=== PATIENT | female | born 1950 | race African-American/Black ===

== ENCOUNTER 2024-11-04 11:25 | Inpatient (IN) | payer OTHER ==
[2024-11-04] MEDS ORDERED: ACETAMINOPHEN INJECTION 100 ML ONE (12:31)
[2024-11-04] MEDS: ACETAMINOPHEN 1000 MG/100 ML BAG IVPB ONE (12:54)
[2024-11-04 13:17] LABS: ABSOLUTE IMMATURE GRANULOCYTES 0.01 x10^3/uL (0.0-0.031); BASOPHILS # 0.03 x10^3/uL (0.01-0.08); EOSINOPHIL % 3.7 % (0.7-5.8); EOSINOPHILS # 0.16 x10^3/uL (0.04-0.36); MCHC 31.1 g/dl (32.2-35.5); MEAN CELL VOLUME 87.7 fl (79.4-94.8); MEAN PLT VOLUME 12.2 fl (9.4-12.3); MONOCYTE # 0.32 x10^3/uL (0.24-0.86); MONOCYTE % 7.5 % (4.7-12.5); RDW 13.8 % (12.4-16.6)
[2024-11-04 13:25] LABS: INR 1.02 (0.83-1.09); PROTHROMBIN TIME (PATIENT) 11.2 SEC (9.7-13.0)
[2024-11-04 13:28] LABS: ACTIVATED PTT 36.9 SECONDS (25.2-36.5)
[2024-11-04 13:33] LABS: GLUCOSE,RANDOM 71 mg/dL (74-106); TOT PROT 7.0 g/dl (6.4-8.2)
[2024-11-04 13:34] LABS: CO2 25 mmol/L (21-32)
[2024-11-04 13:36] LABS: ALK PHOS 89 U/L (40-150)
[2024-11-04 13:38] LABS: SGOT/AST 31 U/L (5-34); SGPT/ALT 48 U/L (0-55)
[2024-11-04 13:39] LABS: CREATININE 2.39 mg/dL (0.55-1.3)
[2024-11-04 15:30] LABS: EPI CELLS 2 /uL (0-25.1); HYALINE CASTS 0 /uL (0-3.1); URINE APPEARANCE CLEAR; URINE BACTERIA 14 /uL (0-1359); URINE BILIRUBIN NEGATIVE (NEGATIVE); URINE COLOR YELLOW; URINE GLUCOSE (UA) NEGATIVE (NEGATIVE); URINE KETONE NEGATIVE (NEGATIVE); URINE LEUK ESTERASE TRACE (NEGATIVE); URINE NITRITE NEGATIVE (NEGATIVE); URINE PROTEIN NEGATIVE (NEGATIVE); URINE RBC 6 /uL (0-23.9); URINE UROBILINOGEN 0.2 mg/dL (0.2-1.0); URINE WBC 1 /uL (0-25.8)
[2024-11-04] MEDS ORDERED: HEPARIN NA (PORCINE) 5,000 UNITS/ML 1ML VIAL ONE (21:09)
[2024-11-04] MEDS ORDERED: INSULIN GLARGINE (LANTUS) 100 UNITS/ML UNITS SQ ONE (21:10)
[2024-11-04] MEDS: INSULIN GLARGINE (LANTUS) 100 UNITS/ML UNITS SQ SCH (21:19)
[2024-11-04] MEDS: HEPARIN NA (PORCINE) 5,000 UNITS/ML 1ML VIAL SQ SCH (21:19)
[2024-11-05] MEDS: INSULIN ASPART SLIDING SCALE (NOVOLOG) 1 VIAL SQ SCH (06:10)
[2024-11-05 08:10] LABS: ABSOLUTE IMMATURE GRANULOCYTES 0.01 x10^3/uL (0.0-0.031); BASOPHILS # 0.04 x10^3/uL (0.01-0.08); EOSINOPHIL % 4.0 % (0.7-5.8); EOSINOPHILS # 0.21 x10^3/uL (0.04-0.36); MCHC 31.2 g/dl (32.2-35.5); MEAN CELL VOLUME 87.5 fl (79.4-94.8); MEAN PLT VOLUME 11.8 fl (9.4-12.3); MONOCYTE # 0.39 x10^3/uL (0.24-0.86); MONOCYTE % 7.5 % (4.7-12.5); RDW 13.7 % (12.4-16.6)
[2024-11-05 09:01] LABS: GLUCOSE,RANDOM 100.0 mg/dL (74-106)
[2024-11-05 09:02] LABS: CO2 27.0 mmol/L (21-32)
[2024-11-05 09:06] LABS: CREATININE 2.0 mg/dL (0.55-1.3)
[2024-11-05] MEDS: MEMANTINE HCL 5 MG TABLET (UD) PO SCH (10:59)
[2024-11-05] MEDS: PANTOPRAZOLE 40 MG TABLET PO SCH (10:59)
[2024-11-05] MEDS: ANASTROZOLE 1 MG TABLET PO SCH (10:59)
[2024-11-05] MEDS: LACTATED RINGERS SOLUTION 1,000 ML/1,000 ML INFUS.BAG IV SCH (18:05)
[2024-11-06 08:40] LABS: ABSOLUTE IMMATURE GRANULOCYTES 0.01 x10^3/uL (0.0-0.031); BASOPHILS # 0.04 x10^3/uL (0.01-0.08); EOSINOPHIL % 4.1 % (0.7-5.8); EOSINOPHILS # 0.19 x10^3/uL (0.04-0.36); MCHC 31.5 g/dl (32.2-35.5); MEAN CELL VOLUME 86.5 fl (79.4-94.8); MEAN PLT VOLUME 11.6 fl (9.4-12.3); MONOCYTE # 0.32 x10^3/uL (0.24-0.86); MONOCYTE % 6.9 % (4.7-12.5); RDW 13.8 % (12.4-16.6)
[2024-11-06 09:44] LABS: GLUCOSE,RANDOM 96.0 mg/dL (74-106)
[2024-11-06 09:45] LABS: TOT PROT 6.5 g/dl (6.4-8.2)
[2024-11-06 09:46] LABS: CO2 25.0 mmol/L (21-32)
[2024-11-06 09:48] LABS: ALK PHOS 82.0 U/L (40-150)
[2024-11-06 09:50] LABS: SGOT/AST 28.0 U/L (5-34); SGPT/ALT 35.0 U/L (0-55)
[2024-11-06 09:51] LABS: CREATININE 2.08 mg/dL (0.55-1.3)
[2024-11-06] MEDS ORDERED: MAGNESIUM SULF 50% (8.12 MEQ/2 ML-1 GM VIAL) IVPB ONE (09:57)
[2024-11-06] MEDS: MAGNESIUM SULF 50% (8.12 MEQ/2 ML-1 GM VIAL) IVPB ONE (12:30)
[2024-11-06] MEDS ORDERED: LACTATED RINGERS SOLUTION 1,000 ML/1,000 ML INFUS.BAG IV SCH (16:27)
[2024-11-06] MEDS: SODIUM CHLORIDE 1,000 ML IV SCH (16:52)
[2024-11-06] MEDS: LIDOCAINE 5% TOPICAL PATCH TP SCH (16:55)
[2024-11-06 23:08] LABS: PARATHYROID HORM INTACT 107 pg/mL (15-65)
[2024-11-07] MEDS: LIDOCAINE PATCH REMOVAL MC SCH (04:20)
[2024-11-07 09:01] LABS: ABSOLUTE IMMATURE GRANULOCYTES 0.01 x10^3/uL (0.0-0.031); BASOPHILS # 0.03 x10^3/uL (0.01-0.08); EOSINOPHIL % 3.7 % (0.7-5.8); EOSINOPHILS # 0.16 x10^3/uL (0.04-0.36); MCHC 31.3 g/dl (32.2-35.5); MEAN CELL VOLUME 87.9 fl (79.4-94.8); MEAN PLT VOLUME 12.1 fl (9.4-12.3); MONOCYTE # 0.33 x10^3/uL (0.24-0.86); MONOCYTE % 7.5 % (4.7-12.5); RDW 13.7 % (12.4-16.6)
[2024-11-07] MEDS ORDERED: ACETAMINOPHEN 325 MG TABLET (FP) PO PRN ×2 (09:09→11:56)
[2024-11-07 09:24] LABS: TOT PROT 6.1 g/dl (6.4-8.2)
[2024-11-07 09:25] LABS: CO2 26.0 mmol/L (21-32)
[2024-11-07 09:27] LABS: ALK PHOS 77.0 U/L (40-150)
[2024-11-07 09:29] LABS: GLUCOSE,RANDOM 128.0 mg/dL (74-106); SGOT/AST 30.0 U/L (5-34); SGPT/ALT 34.0 U/L (0-55)
[2024-11-07 09:30] LABS: CREATININE 2.08 mg/dL (0.55-1.3)
[2024-11-07] MEDS: DONEPEZIL HCL 5 MG TABLET (FP) PO SCH (21:10)
[2024-11-07] MEDS: INSULIN GLARGINE (LANTUS) 100 UNITS/ML UNITS SQ SCH (22:09)
[2024-11-08] MEDS ORDERED: DEXTROSE 50%-WATER 25 GM/50 ML DISP.SYRIN IVPUSH PRN (06:19)
[2024-11-08] MEDS: DEXTROSE 50%-WATER 25 GM/50 ML DISP.SYRIN IVPUSH ONE (06:20)
[2024-11-08] MEDS ORDERED: INSULIN GLARGINE (LANTUS) 100 UNITS/ML UNITS SQ SCH (07:00)
[2024-11-08 07:07] LABS: FREE KAP CHN UR 120.74 mg/L (1.17-86.46); KAPPA LAMBDA RATIO URIN 4.99 (1.83-14.26)
[2024-11-08] MEDS ORDERED: REGADENOSON 0.4 MG/5 ML PRE-FILLED SYRINGE IVPUSH ONE (08:58)
[2024-11-08] MEDS: REGADENOSON 0.4 MG/5 ML PRE-FILLED SYRINGE IVPUSH ONE (10:17)
[2024-11-08 10:47] LABS: MCHC 31.2 g/dl (32.2-35.5); MEAN CELL VOLUME 88.6 fl (79.4-94.8); MEAN PLT VOLUME 11.3 fl (9.4-12.3); RDW 13.9 % (12.4-16.6)
[2024-11-08 11:49] LABS: GLUCOSE,RANDOM 132.0 mg/dL (74-106)
[2024-11-08 11:51] LABS: CO2 27.0 mmol/L (21-32)
[2024-11-08 11:55] LABS: CREATININE 1.73 mg/dL (0.55-1.3)
[2024-11-08] MEDS: HYDROCORTISONE SOD SUCCINATE 100 MG/2 ML VIAL IVPUSH ONE (20:49)
[2024-11-09 08:37] LABS: ABSOLUTE IMMATURE GRANULOCYTES 0.01 x10^3/uL (0.0-0.031); BASOPHILS # 0.04 x10^3/uL (0.01-0.08); EOSINOPHIL % 5.8 % (0.7-5.8); EOSINOPHILS # 0.33 x10^3/uL (0.04-0.36); MCHC 31.0 g/dl (32.2-35.5); MEAN CELL VOLUME 87.8 fl (79.4-94.8); MONOCYTE # 0.34 x10^3/uL (0.24-0.86); MONOCYTE % 6.0 % (4.7-12.5); RDW 13.9 % (12.4-16.6)
[2024-11-09 08:46] LABS: INR 1.01 (0.83-1.09); PROTHROMBIN TIME (PATIENT) 11.0 SEC (9.7-13.0)
[2024-11-09 08:48] LABS: ACTIVATED PTT 35.7 SECONDS (25.2-36.5)
[2024-11-09 09:09] LABS: GLUCOSE,RANDOM 159.0 mg/dL (74-106)
[2024-11-09 09:10] LABS: CO2 24.0 mmol/L (21-32)
[2024-11-09 09:14] LABS: CREATININE 1.81 mg/dL (0.55-1.3)
[2024-11-09] MEDS ORDERED: GENTAMICIN SO4 80 MG/2 ML VIAL ONE (09:27)
[2024-11-09] MEDS ORDERED: VANCOMYCIN 1,000 MG VIAL (RESTRICTED TO ID ONLY) ONE (09:27)
[2024-11-09] MEDS ORDERED: LIDOCAINE 1%/EPI 1:100000 (20 ML MULTI DOSE VIAL) ONE (09:28)
[2024-11-09] MEDS ORDERED: THROMBIN (BOVINE) 20,000 UNIT VIAL TP ONE (09:28)
[2024-11-09] MEDS ORDERED: ROCURONIUM BROMIDE 50 MG/5 ML SYRINGE ONE (09:32)
[2024-11-09] MEDS ORDERED: LIDOCAINE HCL/PF 2% SDV 5ML VIAL ONE (09:32)
[2024-11-09] MEDS ORDERED: SUCCINYLCHOLINE CHLORIDE 200 MG/10 ML SYRINGE ONE (09:32)
[2024-11-09] MEDS ORDERED: PROPOFOL 20 ML ONE (09:32)
[2024-11-09] MEDS ORDERED: MIDAZOLAM HCL 2 MG/2 ML SINGLE DOSE VIAL ONE (09:33)
[2024-11-09] MEDS ORDERED: SODIUM CHLORIDE 0.9% P/F 10 ML VIAL IJ ONE (10:25)
[2024-11-09] MEDS: LIDOCAINE 1%/EPI 1:100000 (20 ML MULTI DOSE VIAL) IJ ONE (11:00)
[2024-11-09] MEDS ORDERED: DEXAMETHASONE SOD PHOSPHATE 4 MG/1 ML VIAL ONE (11:14)
[2024-11-09] MEDS: GENTAMICIN SO4 80 MG/2 ML VIAL IVPB ONE (11:43)
[2024-11-09] MEDS: HYDROGEN PEROXIDE 473 ML PO ONE (11:49)
[2024-11-09] MEDS: THROMBIN (BOVINE) 20,000 UNIT VIAL TP ONE (12:03)
[2024-11-09] MEDS ORDERED: BUPIVACAINE HCL/PF 0.5% (5MG/ML) 10 ML VIAL ONE (12:17)
[2024-11-09] MEDS ORDERED: ONDANSETRON 4 MG/2 ML VIAL ONE (12:48)
[2024-11-09] MEDS ORDERED: PROMETHAZINE HCL 25 MG/1 ML VIAL IVPB PRN ×2 (13:25→14:02)
[2024-11-09] MEDS ORDERED: ONDANSETRON 4 MG/2 ML VIAL IVPUSH PRN ×3 (13:25→14:02)
[2024-11-09] MEDS ORDERED: ACETAMINOPHEN INJECTION 100 ML ONE (13:36)
[2024-11-09] MEDS: ACETAMINOPHEN 1000 MG/100 ML BAG IVPB ONE (13:40)
[2024-11-09] MEDS ORDERED: DEXTROSE 50%-WATER 25 GM/50 ML DISP.SYRIN IVPUSH PRN (14:02)
[2024-11-09] MEDS: SODIUM CHLORIDE 1,000 ML IV SCH (14:37)
[2024-11-09] MEDS: DOCUSATE SODIUM 100 MG CAPSULE (FP) PO SCH (16:12)
[2024-11-09] MEDS: INSULIN ASPART SLIDING SCALE (NOVOLOG) 1 VIAL SQ SCH (17:24)
[2024-11-09] MEDS: LIDOCAINE 5% TOPICAL PATCH TP SCH (17:24)
[2024-11-09] MEDS: CEFAZOLIN 1 GM in DEXTROSE 5%-WATER - 50 ML IVPB SCH (19:03)
[2024-11-09] MEDS: LACTATED RINGERS SOLUTION 1,000 ML IV SCH ×2 (19:27)
[2024-11-09] MEDS: CEFAZOLIN 1 GM/D5W 1 GM/50 ML BAG IVPB SCH (19:28)
[2024-11-09] MEDS: ACETAMINOPHEN 325 MG TABLET (FP) PO SCH (20:57)
[2024-11-09] MEDS: CHLORHEXIDINE GLUCONATE 4% CLEANSER FOR DECOLONIZATION TP SCH (21:06)
[2024-11-09] MEDS: DONEPEZIL HCL 5 MG TABLET (FP) PO SCH (21:06)
[2024-11-09] MEDS: MUPIROCIN 2% TOPICAL OINTMENT FOR DECOLONIZATION NS SCH (21:06)
[2024-11-09] MEDS ORDERED: ACETAMINOPHEN 1000 MG/100 ML BAG IVPB PRN (21:22)
[2024-11-09] MEDS ORDERED: CHLORHEXIDINE GLUCONATE 4% CLEANSER FOR DECOLONIZATION TP SCH (22:00)
[2024-11-09] MEDS ORDERED: LIDOCAINE PATCH REMOVAL MC SCH (22:00)
[2024-11-09] MEDS ORDERED: MUPIROCIN 2% TOPICAL OINTMENT FOR DECOLONIZATION NS SCH (22:00)
[2024-11-09] MEDS: ACETAMINOPHEN 1000 MG/100 ML BAG IVPB SCH (23:37)
[2024-11-09] MEDS: INSULIN GLARGINE (LANTUS) 100 UNITS/ML UNITS SQ SCH (23:37)
[2024-11-10] MEDS: LIDOCAINE PATCH REMOVAL MC SCH (05:57)
[2024-11-10 07:09] LABS: ABSOLUTE IMMATURE GRANULOCYTES 0.04 x10^3/uL (0.0-0.031); BASOPHILS # 0.01 x10^3/uL (0.01-0.08); EOSINOPHIL % 0.0 % (0.7-5.8); EOSINOPHILS # 0.00 x10^3/uL (0.04-0.36); MCHC 31.3 g/dl (32.2-35.5); MEAN CELL VOLUME 87.4 fl (79.4-94.8); MEAN PLT VOLUME 12.0 fl (9.4-12.3); MONOCYTE # 0.96 x10^3/uL (0.24-0.86); MONOCYTE % 7.8 % (4.7-12.5); RDW 14.0 % (12.4-16.6)
[2024-11-10 07:52] LABS: GLUCOSE,RANDOM 222.0 mg/dL (74-106); TOT PROT 6.3 g/dl (6.4-8.2)
[2024-11-10 07:53] LABS: CO2 24.0 mmol/L (21-32)
[2024-11-10 07:55] LABS: ALK PHOS 81.0 U/L (40-150)
[2024-11-10 07:57] LABS: SGPT/ALT 60.0 U/L (0-55)
[2024-11-10 07:58] LABS: CREATININE 1.75 mg/dL (0.55-1.3); SGOT/AST 76.0 U/L (5-34)
[2024-11-10] MEDS ORDERED: PANTOPRAZOLE 40 MG TABLET PO SCH (10:00)
[2024-11-10] MEDS ORDERED: HEPARIN NA (PORCINE) 5,000 UNITS/ML 1ML VIAL SQ SCH (10:00)
[2024-11-10] MEDS: MAGNESIUM SULFATE IN WATER 2 GM/50 ML IVPB IVPB ONE (10:13)
[2024-11-10] MEDS: PANTOPRAZOLE SODIUM 40 MG VIAL IVPUSH SCH (10:14)
[2024-11-10] MEDS: HEPARIN NA (PORCINE) 5,000 UNITS/ML 1ML VIAL SQ SCH (10:14)
[2024-11-10] MEDS: MEMANTINE HCL 5 MG TABLET (UD) PO SCH (10:49)
[2024-11-10] MEDS: ANASTROZOLE 1 MG TABLET PO SCH (11:19)
[2024-11-10] MEDS: ACETAMINOPHEN 1000 MG/100 ML BAG IVPB SCH (12:00)
[2024-11-11 06:52] LABS: ABSOLUTE IMMATURE GRANULOCYTES 0.08 x10^3/uL (0.0-0.031); BASOPHILS # 0.04 x10^3/uL (0.01-0.08); EOSINOPHIL % 0.2 % (0.7-5.8); EOSINOPHILS # 0.03 x10^3/uL (0.04-0.36); MCHC 31.2 g/dl (32.2-35.5); MEAN CELL VOLUME 87.2 fl (79.4-94.8); MEAN PLT VOLUME 12.5 fl (9.4-12.3); MONOCYTE # 0.93 x10^3/uL (0.24-0.86); MONOCYTE % 6.1 % (4.7-12.5); RDW 14.3 % (12.4-16.6)
[2024-11-11 07:27] LABS: ALK PHOS 86.0 U/L (40-150); CO2 27.0 mmol/L (21-32); CREATININE 1.79 mg/dL (0.55-1.3); GLUCOSE,RANDOM 111.0 mg/dL (74-106); SGOT/AST 66.0 U/L (5-34); SGPT/ALT 48.0 U/L (0-55); TOT PROT 6.0 g/dl (6.4-8.2)
[2024-11-11] MEDS ORDERED: DOCUSATE NA 100 MG/10 ML UNIT-DOSE CUPS PO PRN (08:59)
[2024-11-11] MEDS ORDERED: VANCOMYCIN 1 GM PREMIX (F) 1 GM/200 ML BAG IVPB ONE ×2 (09:00→13:54)
[2024-11-11] MEDS: MAGNESIUM SULFATE IN WATER 2 GM/50 ML IVPB IVPB ONE (09:09)
[2024-11-11] MEDS: VANCOMYCIN/WATER FOR INJ (PEG) 1,000 MG/200 ML BAG IVPB ONE (09:09)
[2024-11-11] MEDS: NAPH,MB-DB/K PH,MBDB POWDER PACKET PO SCH (09:11)
[2024-11-11] MEDS: PIPERACILLIN/TAZOB 3.375 GM 3.375 GM in DEXTROSE 5%-WATER - 50 ML IVPB SCH ×2 (09:13→17:44)
[2024-11-11] MEDS: METOPROLOL TARTRATE 50 MG TABLET (FP) PO SCH ×2 (09:15→23:01)
[2024-11-11] MEDS ORDERED: PIPERACILLIN/TAZOB 3.375 GM 3.375 GM in DEXTROSE 5%-WATER - 50 ML IVPB SCH (10:00)
[2024-11-11] MEDS ORDERED: ONDANSETRON 4 MG/2 ML VIAL IVPUSH PRN (13:54)
[2024-11-11] MEDS ORDERED: DEXTROSE 50%-WATER 25 GM/50 ML DISP.SYRIN IVPUSH PRN (13:54)
[2024-11-11] MEDS: INSULIN ASPART SLIDING SCALE (NOVOLOG) 1 VIAL SQ SCH (16:35)
[2024-11-11] MEDS: INSULIN GLARGINE (LANTUS) 100 UNITS/ML UNITS SQ SCH (23:01)
[2024-11-11] MEDS: DONEPEZIL HCL 5 MG TABLET (FP) PO SCH (23:01)
[2024-11-11] MEDS: HEPARIN NA (PORCINE) 5,000 UNITS/ML 1ML VIAL SQ SCH (23:01)
[2024-11-12] MEDS: ACETAMINOPHEN 1000 MG/100 ML BAG IVPB ONE (04:01)
[2024-11-12] MEDS: LIDOCAINE PATCH REMOVAL MC SCH (06:14)
[2024-11-12 08:11] LABS: MCHC 31.7 g/dl (32.2-35.5); MEAN CELL VOLUME 86.3 fl (79.4-94.8); MEAN PLT VOLUME 12.8 fl (9.4-12.3); RDW 13.9 % (12.4-16.6)
[2024-11-12 08:29] LABS: GLUCOSE,RANDOM 150.0 mg/dL (74-106)
[2024-11-12 08:30] LABS: TOT PROT 5.5 g/dl (6.4-8.2)
[2024-11-12 08:31] LABS: CO2 25.0 mmol/L (21-32)
[2024-11-12 08:33] LABS: ALK PHOS 93.0 U/L (40-150)
[2024-11-12 08:35] LABS: SGOT/AST 47.0 U/L (5-34); SGPT/ALT 43.0 U/L (0-55)
[2024-11-12 08:36] LABS: CREATININE 1.97 mg/dL (0.55-1.3)
[2024-11-12] MEDS: MEMANTINE HCL 5 MG TABLET (UD) PO SCH (10:17)
[2024-11-12] MEDS: NAPH,MB-DB/K PH,MBDB POWDER PACKET PO SCH (10:18)
[2024-11-12] MEDS: PANTOPRAZOLE SODIUM 40 MG VIAL IVPUSH SCH (10:18)
[2024-11-12] MEDS: ANASTROZOLE 1 MG TABLET PO SCH (10:18)
[2024-11-13] MEDS: PIPERACILLIN/TAZOB 3.375 GM 3.375 GM in DEXTROSE 5%-WATER - 50 ML IVPB ONE (03:25)
[2024-11-13] MEDS: PIPERACILLIN/TAZOB 3.375 GM 3.375 GM in DEXTROSE 5%-WATER - 50 ML IVPB SCH ×2 (03:36→15:35)
[2024-11-13 07:34] LABS: ABSOLUTE IMMATURE GRANULOCYTES 0.07 x10^3/uL (0.0-0.031); BASOPHILS # 0.03 x10^3/uL (0.01-0.08); EOSINOPHIL % 1.8 % (0.7-5.8); EOSINOPHILS # 0.16 x10^3/uL (0.04-0.36); MCHC 30.9 g/dl (32.2-35.5); MEAN CELL VOLUME 88.1 fl (79.4-94.8); MEAN PLT VOLUME 11.6 fl (9.4-12.3); MONOCYTE # 0.64 x10^3/uL (0.24-0.86); MONOCYTE % 7.1 % (4.7-12.5); RDW 14.4 % (12.4-16.6)
[2024-11-13 08:16] LABS: EPI CELLS 6 /uL (0-25.1); HYALINE CASTS 0 /uL (0-3.1); URINE APPEARANCE CLEAR; URINE BACTERIA 2 /uL (0-1359); URINE BILIRUBIN NEGATIVE (NEGATIVE); URINE COLOR YELLOW; URINE GLUCOSE (UA) 1+ (NEGATIVE); URINE KETONE TRACE (NEGATIVE); URINE LEUK ESTERASE NEGATIVE (NEGATIVE); URINE NITRITE NEGATIVE (NEGATIVE); URINE PROTEIN 1+ (NEGATIVE); URINE RBC 34 /uL (0-23.9); URINE UROBILINOGEN 1.0 mg/dL (0.2-1.0)
[2024-11-13 08:24] LABS: GLUCOSE,RANDOM 223.0 mg/dL (74-106); TOT PROT 6.3 g/dl (6.4-8.2)
[2024-11-13 08:25] LABS: CO2 27.0 mmol/L (21-32)
[2024-11-13 08:27] LABS: ALK PHOS 99.0 U/L (40-150)
[2024-11-13 08:29] LABS: SGOT/AST 29.0 U/L (5-34); SGPT/ALT 34.0 U/L (0-55)
[2024-11-13 08:30] LABS: CREATININE 2.27 mg/dL (0.55-1.3)
[2024-11-13] MEDS: SODIUM CHLORIDE 1,000 ML IV SCH (15:35)
[2024-11-14 05:17] LABS: EPI CELLS 4 /uL (0-25.1); HYALINE CASTS 0 /uL (0-3.1); URINE APPEARANCE CLEAR; URINE BACTERIA 1 /uL (0-1359); URINE BILIRUBIN NEGATIVE (NEGATIVE); URINE COLOR YELLOW; URINE GLUCOSE (UA) TRACE (NEGATIVE); URINE KETONE TRACE (NEGATIVE); URINE LEUK ESTERASE NEGATIVE (NEGATIVE); URINE NITRITE NEGATIVE (NEGATIVE); URINE PROTEIN 1+ (NEGATIVE); URINE RBC 11 /uL (0-23.9); URINE UROBILINOGEN 1.0 mg/dL (0.2-1.0)
[2024-11-14] MEDS: DOCUSATE NA 100 MG/10 ML UNIT-DOSE CUPS PO PRN (16:30)
[2024-11-14] MEDS: PIPERACILLIN/TAZOB 3.375 GM 3.375 GM in DEXTROSE 5%-WATER - 50 ML IVPB SCH (18:12)
[2024-11-15 08:23] LABS: ABSOLUTE IMMATURE GRANULOCYTES 0.02 x10^3/uL (0.0-0.031); BASOPHILS # 0.05 x10^3/uL (0.01-0.08); EOSINOPHIL % 3.9 % (0.7-5.8); EOSINOPHILS # 0.20 x10^3/uL (0.04-0.36); MCHC 31.5 g/dl (32.2-35.5); MEAN CELL VOLUME 87.2 fl (79.4-94.8); MEAN PLT VOLUME 11.5 fl (9.4-12.3); MONOCYTE # 0.65 x10^3/uL (0.24-0.86); MONOCYTE % 12.6 % (4.7-12.5); RDW 13.8 % (12.4-16.6)
[2024-11-15 09:02] LABS: GLUCOSE,RANDOM 148.0 mg/dL (74-106)
[2024-11-15 09:03] LABS: TOT PROT 6.2 g/dl (6.4-8.2)
[2024-11-15 09:04] LABS: CO2 22.0 mmol/L (21-32)
[2024-11-15 09:05] LABS: ALK PHOS 90.0 U/L (40-150)
[2024-11-15 09:08] LABS: CREATININE 2.05 mg/dL (0.55-1.3); SGOT/AST 58.0 U/L (5-34); SGPT/ALT 59.0 U/L (0-55)
[2024-11-15] MEDS: POTASSIUM PHOSPHATE 15 MM in DEXTROSE 5%-WATER - 250 ML IVPB ONE (14:15)
[2024-11-15] MEDS: MAGNESIUM 1GM/D5W - 1 GM/100 ML IVPB IVPB ONE (14:18)
[2024-11-15] MEDS: SODIUM PHOSPHATE - 15 MM in SODIUM CHLORIDE 250 ML IVPB ONE (15:54)
[2024-11-15] MEDS: DEXTROSE 5%-0.45% SALINE 1,000 ML IV SCH (17:39)
[2024-11-15 18:56] LABS: EPI CELLS 8 /uL (0-25.1); HYALINE CASTS 0 /uL (0-3.1); URINE APPEARANCE CLEAR; URINE BACTERIA 2 /uL (0-1359); URINE BILIRUBIN NEGATIVE (NEGATIVE); URINE COLOR YELLOW; URINE GLUCOSE (UA) NEGATIVE (NEGATIVE); URINE KETONE NEGATIVE (NEGATIVE); URINE LEUK ESTERASE NEGATIVE (NEGATIVE); URINE NITRITE NEGATIVE (NEGATIVE); URINE PROTEIN 1+ (NEGATIVE); URINE RBC 12 /uL (0-23.9); URINE UROBILINOGEN 1.0 mg/dL (0.2-1.0)
[2024-11-16 07:33] LABS: ABSOLUTE IMMATURE GRANULOCYTES 0.03 x10^3/uL (0.0-0.031); BASOPHILS # 0.04 x10^3/uL (0.01-0.08); EOSINOPHIL % 3.4 % (0.7-5.8); EOSINOPHILS # 0.18 x10^3/uL (0.04-0.36); MCHC 31.3 g/dl (32.2-35.5); MEAN CELL VOLUME 86.9 fl (79.4-94.8); MEAN PLT VOLUME 11.2 fl (9.4-12.3); MONOCYTE # 0.78 x10^3/uL (0.24-0.86); MONOCYTE % 14.7 % (4.7-12.5); RDW 13.6 % (12.4-16.6)
[2024-11-16 07:59] LABS: GLUCOSE,RANDOM 163.0 mg/dL (74-106); TOT PROT 6.1 g/dl (6.4-8.2)
[2024-11-16 08:00] LABS: CO2 22.0 mmol/L (21-32)
[2024-11-16 08:02] LABS: ALK PHOS 87.0 U/L (40-150)
[2024-11-16 08:04] LABS: SGOT/AST 32.0 U/L (5-34); SGPT/ALT 48.0 U/L (0-55)
[2024-11-16 08:05] LABS: CREATININE 2.11 mg/dL (0.55-1.3)
[2024-11-17 08:09] LABS: ABSOLUTE IMMATURE GRANULOCYTES 0.04 x10^3/uL (0.0-0.031); BASOPHILS # 0.05 x10^3/uL (0.01-0.08); EOSINOPHIL % 2.7 % (0.7-5.8); EOSINOPHILS # 0.23 x10^3/uL (0.04-0.36); MCHC 31.4 g/dl (32.2-35.5); MEAN CELL VOLUME 87.1 fl (79.4-94.8); MEAN PLT VOLUME 11.1 fl (9.4-12.3); MONOCYTE # 0.95 x10^3/uL (0.24-0.86); MONOCYTE % 11.0 % (4.7-12.5); RDW 13.8 % (12.4-16.6)
[2024-11-17 08:29] LABS: GLUCOSE,RANDOM 257.0 mg/dL (74-106)
[2024-11-17 08:30] LABS: TOT PROT 6.0 g/dl (6.4-8.2)
[2024-11-17 08:31] LABS: CO2 26.0 mmol/L (21-32)
[2024-11-17 08:33] LABS: ALK PHOS 78.0 U/L (40-150)
[2024-11-17 08:35] LABS: SGOT/AST 29.0 U/L (5-34); SGPT/ALT 40.0 U/L (0-55)
[2024-11-17 08:52] LABS: CREATININE 2.26 mg/dL (0.55-1.3)
[2024-11-17] MEDS: PANTOPRAZOLE 40 MG TABLET PO SCH (10:27)
[2024-11-17] MEDS: MAGNESIUM SULF 50% (8.12 MEQ/2 ML-1 GM VIAL) IVPB ONE (14:28)
[2024-11-17] MEDS: AMINO ACIDS 4.25%/D5W 1,000 ML IV SCH (14:46)
[2024-11-17] MEDS: POTASSIUM PHOSPHATE 30 MM in SODIUM CHLORIDE 500 ML IVPB ONE (15:55)
[2024-11-18 08:14] LABS: MCHC 31.4 g/dl (32.2-35.5); MEAN CELL VOLUME 87.8 fl (79.4-94.8); MEAN PLT VOLUME 10.5 fl (9.4-12.3); RDW 13.7 % (12.4-16.6)
[2024-11-18 08:52] LABS: GLUCOSE,RANDOM 230.0 mg/dL (74-106)
[2024-11-18 08:53] LABS: TOT PROT 6.0 g/dl (6.4-8.2)
[2024-11-18 08:54] LABS: CO2 20.0 mmol/L (21-32)
[2024-11-18 08:55] LABS: ALK PHOS 73.0 U/L (40-150)
[2024-11-18 08:58] LABS: SGOT/AST 25.0 U/L (5-34); SGPT/ALT 39.0 U/L (0-55)
[2024-11-18 08:59] LABS: CREATININE 2.04 mg/dL (0.55-1.3)
[2024-11-18] MEDS: NAPH,MB-DB/K PH,MBDB POWDER PACKET PO SCH (21:47)
[2024-11-18] MEDS: INSULIN GLARGINE (LANTUS) 100 UNITS/ML UNITS SQ SCH (22:00)
[2024-11-19] MEDS: INSULIN GLARGINE (LANTUS) 100 UNITS/ML UNITS SQ SCH (22:08)
[2024-11-20 09:04] LABS: ABSOLUTE IMMATURE GRANULOCYTES 0.05 x10^3/uL (0.0-0.031); BASOPHILS # 0.05 x10^3/uL (0.01-0.08); EOSINOPHIL % 3.0 % (0.7-5.8); EOSINOPHILS # 0.25 x10^3/uL (0.04-0.36); MCHC 31.2 g/dl (32.2-35.5); MEAN CELL VOLUME 87.0 fl (79.4-94.8); MEAN PLT VOLUME 10.1 fl (9.4-12.3); MONOCYTE # 0.65 x10^3/uL (0.24-0.86); MONOCYTE % 7.8 % (4.7-12.5); RDW 13.7 % (12.4-16.6)
[2024-11-20 09:40] LABS: GLUCOSE,RANDOM 291.0 mg/dL (74-106)
[2024-11-20 09:41] LABS: TOT PROT 6.5 g/dl (6.4-8.2)
[2024-11-20 09:42] LABS: CO2 26.0 mmol/L (21-32)
[2024-11-20 09:43] LABS: ALK PHOS 81.0 U/L (40-150)
[2024-11-20 09:46] LABS: CREATININE 1.62 mg/dL (0.55-1.3); SGOT/AST 32.0 U/L (5-34); SGPT/ALT 44.0 U/L (0-55)
[2024-11-21 07:39] LABS: ABSOLUTE IMMATURE GRANULOCYTES 0.03 x10^3/uL (0.0-0.031); BASOPHILS # 0.07 x10^3/uL (0.01-0.08); EOSINOPHIL % 2.4 % (0.7-5.8); EOSINOPHILS # 0.23 x10^3/uL (0.04-0.36); MCHC 31.8 g/dl (32.2-35.5); MEAN CELL VOLUME 86.3 fl (79.4-94.8); MEAN PLT VOLUME 9.9 fl (9.4-12.3); MONOCYTE # 0.62 x10^3/uL (0.24-0.86); MONOCYTE % 6.5 % (4.7-12.5); RDW 13.8 % (12.4-16.6)
[2024-11-21 08:12] LABS: CREATININE 1.57 mg/dL (0.55-1.3); GLUCOSE,RANDOM 287.0 mg/dL (74-106)
[2024-11-21 08:13] LABS: CO2 24.0 mmol/L (21-32); SGOT/AST 43.0 U/L (5-34); TOT PROT 7.3 g/dl (6.4-8.2)
[2024-11-21 08:14] LABS: ALK PHOS 92.0 U/L (40-150); SGPT/ALT 58.0 U/L (0-55)
[2024-11-21] MEDS: LORazepam 2 MG/ML SDV VIAL IVPUSH ONE ×2 (17:17→17:46)
[2024-11-22] MEDS ORDERED: IOHEXOL (OMNIPAQUE IV) 350 MG/ML - 100 ML BOTTLE NGT ONE (00:35)
[2024-11-22] MEDS ORDERED: IOHEXOL (OMNIPAQUE PO) 12 MG/ML - 500 ML BOTTLE PO ONE (00:35)
[2024-11-22] MEDS: IOHEXOL (OMNIPAQUE IV) 350 MG/ML - 100 ML BOTTLE NGT ONE (00:46)
[2024-11-22] MEDS: IOHEXOL (OMNIPAQUE PO) 12 MG/ML - 500 ML BOTTLE PO ONE (00:47)
[2024-11-22 07:59] LABS: ABSOLUTE IMMATURE GRANULOCYTES 0.04 x10^3/uL (0.0-0.031); BASOPHILS # 0.07 x10^3/uL (0.01-0.08); EOSINOPHIL % 1.8 % (0.7-5.8); EOSINOPHILS # 0.16 x10^3/uL (0.04-0.36); MCHC 31.4 g/dl (32.2-35.5); MEAN CELL VOLUME 86.9 fl (79.4-94.8); MEAN PLT VOLUME 10.4 fl (9.4-12.3); MONOCYTE # 0.71 x10^3/uL (0.24-0.86); MONOCYTE % 7.8 % (4.7-12.5); RDW 13.9 % (12.4-16.6)
[2024-11-22 08:41] LABS: GLUCOSE,RANDOM 291.0 mg/dL (74-106); TOT PROT 7.2 g/dl (6.4-8.2)
[2024-11-22 08:44] LABS: ALK PHOS 88.0 U/L (40-150)
[2024-11-22 08:47] LABS: CREATININE 1.51 mg/dL (0.55-1.3); SGOT/AST 30.0 U/L (5-34); SGPT/ALT 46.0 U/L (0-55)
[2024-11-22 08:51] LABS: CO2 19.0 mmol/L (21-32)
[2024-11-22] MEDS ORDERED: FENTANYL CITRATE/PF 50 MCG/ML VIAL ONE ×3 (10:10→10:27)
[2024-11-22] MEDS: FENTANYL CITRATE/PF 50 MCG/ML VIAL IVPUSH ONE ×3 (10:20→10:31)
[2024-11-23 08:54] LABS: ABSOLUTE IMMATURE GRANULOCYTES 0.02 x10^3/uL (0.0-0.031); BASOPHILS # 0.06 x10^3/uL (0.01-0.08); EOSINOPHIL % 0.2 % (0.7-5.8); EOSINOPHILS # 0.02 x10^3/uL (0.04-0.36); MCHC 31.9 g/dl (32.2-35.5); MEAN CELL VOLUME 86.1 fl (79.4-94.8); MEAN PLT VOLUME 9.9 fl (9.4-12.3); MONOCYTE # 0.96 x10^3/uL (0.24-0.86); MONOCYTE % 11.6 % (4.7-12.5); RDW 14.0 % (12.4-16.6)
[2024-11-23] MEDS: IOHEXOL (OMNIPAQUE IV) 350 MG/ML - 100 ML BOTTLE PEG ONE (08:55)
[2024-11-23 09:47] LABS: GLUCOSE,RANDOM 212.0 mg/dL (74-106)
[2024-11-23 09:48] LABS: TOT PROT 7.0 g/dl (6.4-8.2)
[2024-11-23 09:49] LABS: CO2 26.0 mmol/L (21-32)
[2024-11-23 09:50] LABS: ALK PHOS 89.0 U/L (40-150)
[2024-11-23 09:53] LABS: CREATININE 1.68 mg/dL (0.55-1.3)
[2024-11-23 10:27] LABS: SGPT/ALT 35.0 U/L (0-55)
[2024-11-23 10:28] LABS: SGOT/AST 21.0 U/L (5-34)
[2024-11-23] MEDS: SODIUM CHLORIDE 1,000 ML IV SCH (11:02)
[2024-11-23] MEDS: MAGNESIUM 2GM/50ML STERILE WATER IVPB IVPB ONE (11:03)
[2024-11-23 21:36] VITALS: BMI 27.1
[2024-11-24 11:02] LABS: ABSOLUTE IMMATURE GRANULOCYTES 0.01 x10^3/uL (0.0-0.031); BASOPHILS # 0.07 x10^3/uL (0.01-0.08); EOSINOPHIL % 1.2 % (0.7-5.8); EOSINOPHILS # 0.06 x10^3/uL (0.04-0.36); MCHC 31.5 g/dl (32.2-35.5); MEAN CELL VOLUME 87.3 fl (79.4-94.8); MEAN PLT VOLUME 11.4 fl (9.4-12.3); MONOCYTE # 0.89 x10^3/uL (0.24-0.86); MONOCYTE % 17.1 % (4.7-12.5); RDW 14.6 % (12.4-16.6)
[2024-11-24 11:30] LABS: GLUCOSE,RANDOM 146.0 mg/dL (74-106); TOT PROT 6.5 g/dl (6.4-8.2)
[2024-11-24 11:31] LABS: CO2 21.0 mmol/L (21-32)
[2024-11-24 11:33] LABS: ALK PHOS 78.0 U/L (40-150)
[2024-11-24 11:35] LABS: SGOT/AST 22.0 U/L (5-34); SGPT/ALT 25.0 U/L (0-55)
[2024-11-24 11:36] LABS: CREATININE 2.01 mg/dL (0.55-1.3)
[2024-11-24] MEDS: ACETAMINOPHEN 650 MG/20.3 ML ORAL SOLUTION (CUPS) PO PRN (11:40)
[2024-11-24] MEDS: LACTATED RINGERS SOLUTION 1,000 ML/1,000 ML INFUS.BAG IV SCH (12:16)
[2024-11-25 09:25] LABS: ABSOLUTE IMMATURE GRANULOCYTES 0.02 x10^3/uL (0.0-0.031); BASOPHILS # 0.06 x10^3/uL (0.01-0.08); EOSINOPHIL % 1.6 % (0.7-5.8); EOSINOPHILS # 0.09 x10^3/uL (0.04-0.36); MCHC 30.2 g/dl (32.2-35.5); MEAN CELL VOLUME 88.8 fl (79.4-94.8); MEAN PLT VOLUME 10.1 fl (9.4-12.3); MONOCYTE # 0.73 x10^3/uL (0.24-0.86); MONOCYTE % 12.9 % (4.7-12.5); RDW 14.3 % (12.4-16.6)
[2024-11-25 09:53] LABS: GLUCOSE,RANDOM 139.0 mg/dL (74-106); TOT PROT 6.0 g/dl (6.4-8.2)
[2024-11-25 09:54] LABS: CO2 27.0 mmol/L (21-32)
[2024-11-25 09:56] LABS: ALK PHOS 97.0 U/L (40-150)
[2024-11-25 09:58] LABS: CREATININE 1.95 mg/dL (0.55-1.3); SGOT/AST 23.0 U/L (5-34); SGPT/ALT 29.0 U/L (0-55)
[2024-11-25] MEDS ORDERED: DOCUSATE NA 100 MG/10 ML UNIT-DOSE CUPS PEG PRN (10:15)
[2024-11-25] MEDS: MEMANTINE HCL 5 MG TABLET (UD) GT SCH (10:51)
[2024-11-25] MEDS: FAMOTIDINE 20 MG/2.5 ML ORAL LIQUID PEG SCH (11:32)
[2024-11-25] MEDS: SODIUM CHLORIDE 1,000 ML IV SCH (12:08)
[2024-11-25] MEDS: METOPROLOL TARTRATE 50 MG TABLET (FP) PEG SCH (12:08)
[2024-11-26] MEDS: ANASTROZOLE 1 MG TABLET NR SCH (10:02)
[2024-11-26 12:38] LABS: GLUCOSE,RANDOM 193.0 mg/dL (74-106)
[2024-11-26 12:40] LABS: CO2 27.0 mmol/L (21-32)
[2024-11-26 12:44] LABS: CREATININE 1.62 mg/dL (0.55-1.3)
[2024-11-27] MEDS: FAMOTIDINE 20 MG/2.5 ML ORAL LIQUID PEG SCH (09:43)
[2024-11-27 10:22] LABS: GLUCOSE,RANDOM 161.0 mg/dL (74-106); TOT PROT 6.4 g/dl (6.4-8.2)
[2024-11-27 10:23] LABS: CO2 27.0 mmol/L (21-32)
[2024-11-27 10:24] LABS: ALK PHOS 106.0 U/L (40-150)
[2024-11-27 10:27] LABS: CREATININE 1.58 mg/dL (0.55-1.3); SGOT/AST 23.0 U/L (5-34); SGPT/ALT 28.0 U/L (0-55)
[2024-11-27] MEDS: ACETAMINOPHEN 650 MG/20.3 ML ORAL SOLUTION (CUPS) PEG PRN (13:53)
[2024-11-28 14:12] VITALS: TEMP 98.6
[2024-11-28 17:24] VITALS: RESP 18
[2024-11-28 17:39] VITALS: BP 129/61; PULSE 76
== END 2024-11-28 18:30 | DRG 26 ==
LOC: JER 11:25 → JERBED 16:13 → OBSVTOIN 16:13 → J6S 22:31 → JICU 11-09 15:02 → J6S 11-11 13:42
PROVIDERS: ADMIT Internal Medicine; ATTEND Internal Medicine
PROC: 00C00ZZ Extirpation of Matter from Brain, Open Approach (ICD-10-PCS; principal; 2024-11-04)
PROC: 0NQ Head and Facial Bones, Repair (ICD-10-PCS; 2024-11-04)
PROC: 0DH63UZ Insertion of Feeding Device into Stomach, Percutaneous Approach (ICD-10-PCS; 2024-11-20)
DX: D33.0 Benign neoplasm of brain, supratentorial (principal); E44.0 Moderate protein-calorie malnutrition; F02.84 Dementia in other diseases classified elsewhere, unspecified severity, with anxiety; E87.0 Hyperosmolality and hypernatremia; N18.4 Chronic kidney disease, stage 4 (severe); R50.82 Postprocedural fever; N63.10 Unspecified lump in the right breast, unspecified quadrant; G30.9 Alzheimer's disease, unspecified; E21.0 Primary hyperparathyroidism; I12.9 Hypertensive chronic kidney disease with stage 1 through stage 4 chronic kidney disease, or unspecified chronic kidney disease; E11.22 Type 2 diabetes mellitus with diabetic chronic kidney disease; E78.5 Hyperlipidemia, unspecified; Z93.1 Gastrostomy status; Z68.28 Body mass index [BMI] 28.0-28.9, adult; Z87.11 Personal history of peptic ulcer disease; Z79.4 Long term (current) use of insulin; Z85.3 Personal history of malignant neoplasm of breast
CPT/HCPCS: 36415; 49440; 70450-TC; 70544-TC; 70553-TC; 71045-TC-FY; 71250-TC; 72170-TC-FY; 73700-TC-RT; 74018-TC-FY; 74176-TC; 76775-TC; 78452-TC; 80048; 80053; 81003; 82306; 82310; 82550; 82607; 82962; 83735; 83883; 83970; 84100; 84155; 84165; 84443; 84484; 85025; 85027; 85610; 85730; 86780; 86850; 86900; 86901; 87040; 87086; 87637-QW; 88307-TC; 88311-TC; 93005; 93010; 93017; 93306-TC; 93971-TC-RT; 94760; 97116-GP; 97162-GP; 99285-25; A9502; C1713; J2785